=== PATIENT | male | born 1955 | race Caucasian/White ===

== ENCOUNTER 2016-05-10 06:34 | Day surgery (SDC) | payer BC ==
[2016-05-10] MEDS ORDERED: Lactated Ringers 1,000 ML IV SCH (06:45)
[2016-05-10] MEDS ORDERED: Propofol 200 MG/20 ML SDV IV ONE (08:00)
[2016-05-10] MEDS ORDERED: Simethicone Drops 40 MG/0.6 ML 30 ML Bottle ONE (08:15)
--- NOTE | 2016-05-10 08:26 | PCM.OPNOTE ---
- General Post-Op/Procedure Note Date of Surgery/Procedure: 05/10/16 Operative Procedure(s): c scope with bx Findings: rectal polyp Pre Op Diagnosis: screening Post-Op Diagnosis: rectal polyp Anesthesia Technique: MAC Primary Surgeon: Christopher Raymond Anesthesia Provider: Simón Qureshi Pathology: rectal polyp Complications: None Condition: Good Free Text/Narrative:: see dictation
[2016-05-10 09:22] VITALS: BP 123/68
--- NOTE | 2016-05-10 10:49 | OR ---
DATE OF OPERATION: 05/10/2016 SURGEON: Christopher Raymond MD PROCEDURE PERFORMED: Colonoscopy with cold forceps biopsy. PREOPERATIVE DIAGNOSIS: Screening colonoscopy. POSTOPERATIVE DIAGNOSIS: Rectal polyp. INDICATIONS FOR PROCEDURE: This is a 61-year-old white male, who presents for screening colonoscopy. He was offered and accepted the same. DESCRIPTION OF OPERATION: After an excellent IV sedation was administered, digital rectal exam was performed. No marked abnormality was noted. Flexible colonoscope was inserted and advanced to the cecum without difficulty. The following findings are noted. Ascending colon, unremarkable. Transverse colon, unremarkable. Descending colon, unremarkable. Sigmoid, unremarkable. Rectum, a small hyperplastic-appearing lesion, biopsied with cold biopsy forceps and sent for permanent. Colon was deflated. Scope was removed. The patient tolerated the procedure well and was taken to recovery room in good condition. /[id number] /THERESAL
== END 2016-05-10 09:22 | disposition home or self-care (01) ==
LOC: FB.SDS 06:34
PROVIDERS: ATTEND Surgery
DX: Z12.11 Encounter for screening for malignant neoplasm of colon (principal); K62.1 Rectal polyp; I10 Essential (primary) hypertension; E78.2 Mixed hyperlipidemia; E79.0 Hyperuricemia without signs of inflammatory arthritis and tophaceous disease; L40.0 Psoriasis vulgaris; Z87.891 Personal history of nicotine dependence; Z79.899 Other long term (current) drug therapy; Z79.82 Long term (current) use of aspirin
CPT/HCPCS: 45380; 88305; A9270; J2704; J7120